=== PATIENT | female | born 1990 | race Caucasian/White ===

== ENCOUNTER 2017-02-08 12:04 | Emergency (ER) | payer OTHER ==
[2017-02-08] MEDS ORDERED: ONDANSETRON HCL 4 MG/2 ML VIAL ONE (12:30)
--- NOTE | 2017-02-08 13:15 | RADIOLOGY REPORT ---
HISTORY: Injury. COMPARISON: None. FINDINGS: 2 views of the left elbow obtained. There is no fracture. There is no lytic or sclerotic lesion. N ormal alignment and mineralization are demonstrated. There is no elevated anterior or posterior fat pad. IMPRESSION: No fracture Final Electronic Signature: This report was electronically signed by Mao Main MD on 02/08/2017 1:13 PM. jose /
--- NOTE | 2017-02-08 13:16 | RADIOLOGY REPORT ---
HISTORY: Injury. COMPARISON: None. FINDINGS: 3 views of the cervical spine obtained. There is no fracture. There is no listhesis. There is no l ytic or sclerotic lesion. Alignment and mineralization are normal. There is no prevertebral soft ti ssue prominence. There is no significant degenerative changes. IMPRESSION: No evidence of traumatic malalignment. If there is mechanism for injury to the cervical spine, CT is recommended to exclude fracture. Final Electronic Signature: This report was electronically signed by Mao Main MD on 02/08/2017 1:14 PM. jose /
--- NOTE | 2017-02-08 14:24 | RADIOLOGY REPORT ---
HISTORY: Trauma. COMPARISON: None. FINDINGS: Two views of the humerus obtained. There is no fracture. There is no lytic or sclerotic lesion. Th ere is no soft tissue swelling. There is normal alignment and mineralization. IMPRESSION: Normal x-rays of the humerus. Final Electronic Signature: This report was electronically signed by Trung Leon MD on 02/08/2017 2: 21 PM. dorian /
--- NOTE | 2017-02-08 15:07 | ER PHYSICIAN DOCUMENTATION ---
Physician Documentation [facility] Name:Stefanie Treadwell Age:26 yrs Sex:Female :1990 Arrival Date:02/08/2017 Time:12:04 Bed6 Private MD: Clifford Sebastian Disposition: 02/08 16:00 Chart complete. tl1 Disposition: 02/08/17 14:35 Discharged to Home/Self Care. Impression: Elbow Contusion, Elbow - Forearm Sprain. - Condition is Good. - Discharge Instructions: CONTUSION, Elbow, SPRAIN ELBOW. - Prescriptions for Avoca 7.5- 325 mg Oral Tablet - take 1 tablet by ORAL route every 6 hours As needed; 20 tablet. Zofran 4 mg Oral Tablet - take 1-2 tablet by ORAL route every 4-6 hours As needed; 10 tablet. - Medical Reconciliation form form. - Follow up: Private Physician; When: 4- 6 days; Reason: Recheck today's complaints, Continuance of care. - Problem is new. - Symptoms have improved. HPI: 12:12 This 26 yrs old Female presents to ER with complaints of Arm Injury - LEFT. tl1 12:15 She got bucked off a horse and landed on her left side. She did not hit her head. She tl1 did land on her left side and now complains of left proximal and mid left mid humerus pain and left elbow pain, She denies N/W/T. She denies h/a, neck pain, chest pain, abdominal pain or other extremity pain.. Historical: - Allergies: No known drug Allergies; - Home Meds: 1. None - PMHx: None; - PSHx: None; - Tetanus: unknown. - Ebola Screening: : Patient negative for fever greater than or equal to 101.5 degrees Fahrenheit, and additional compatible Ebola Virus Disease symptoms. Patient denies exposure to infectious person. Patient denies travel to an Ebola-affected area in the 21 days before illness onset. No symptoms or risks identified at this time. . - Immunization history: Flu Vaccine None. - Social history: Smoking status: Patient states was never smoker of tobacco. Patient uses alcohol occasionally. Patient/guardian denies using marijuana. ROS: 12:15 MS/extremity: Positive for injury or acute deformity, decreased range of motion, tl1 swelling, tenderness, of the left bicep, left antecubital area, left tricep and left elbow. 12:15 All other systems are negative. Exam: 12:15 Constitutional: The patient appears alert, awake, well developed, well hydrated, well tl1 groomed, well nourished, anxious, in obvious distress, moderately distressed, in obvious pain, restless, uncomfortable. 12:15 Head/face: Exam is negative for laceration(s), very superficial 1 cm laceration to the right anterior frontal scalp about 1.5 cm up from the hairline,which is not bleeding, is gaping very slightly and does not need suturing.. 12:15 Eyes: Periorbital structures: appear normal, Pupils: equal, round, and reactive to light and accomodation, Extraocular movements: intact throughout. 12:15 ENT: Exam is negative for acute changes. 12:15 Neck: External neck: is normal, C-spine: vertebral tenderness, that is mild, appreciated at C4, C5 and C6, ROM/movement: is normal, is supple, without pain, no range of motions limitations, no nuchal rigidity. 12:15 Chest/axilla: Palpation: is normal, tenderness, is not appreciated. 12:15 Cardiovascular: Rate: normal, Rhythm: regular, Heart sounds: normal. 12:15 Respiratory: Respirations: normal, Breath sounds: are normal. 12:15 Abdomen/GI: Palpation: abdomen is soft and non-tender. 12:15 Back: pain, is absent, ROM is normal, CVA tenderness, is absent. 12:15 Musculoskeletal/extremity: Extremities: grossly normal except: noted in the left arm: TTP from mid humerus to elbow, diffusely. Elbow mildly swollen with questionable smalll effusion. ROM of left elbow shows limited ROM with flexion, extension and pronation/supination. Distal NV exam intact., Circulation is intact in all extremities. Compartment Syndrome exam of affected extremity: is normal. 12:15 Neuro: Exam negative for acute changes. Vital Signs: 12:27 BP 133 / 68; Pulse 85; Resp 14; Temp 98.3(O); Pulse Ox 96% on R/A; Pain 6/10; sj 12:41 BP 114 / 81; Pulse 88; Resp 14; Pulse Ox 98% on R/A; Pain 1/10; sj 14:02 BP 114 / 81; Pulse 90; Resp 14; Pulse Ox 96% on R/A; Pain 6/10; sj 14:55 BP 120 / 71; Pulse 78; Resp 16; Pulse Ox 96% on R/A; Pain 4/10; sj MDM: 12:17 Patient medically screened. tl1 16:00 Differential diagnosis: dislocation, closed fracture, contusion, abrasion. Data tl1 reviewed: vital signs, nurses notes, radiologic studies, plain films, and as a result, I will discharge patient. Test interpretation: by ED physician or midlevel provider: plain radiologic studies. Counseling: I had a detailed discussion with the patient and/or guardian regarding: the historical points, exam findings, and any diagnostic results supporting the discharge/admit diagnosis, radiology results, the need for outpatient follow up, for a recheck, of today's symptoms. Medication response: The patient's symptoms have improved, Dilaudid. Response to treatment: the patient's symptoms have mildly improved after treatment, and as a result, I will. Special discussion: No apparent bony injury, with the pain apparently related to soft tissue contusion. She was given a left arm sling for comfort, which she can remove as symptoms allow. She should f/u with an orthopedist for significant ongoing symptoms, and return here for any worsening.. 02/08 13:16 Order name: ELBOW; [address] [place] [id number]; Complete Time: 10:53 EDMS 02/09 10:52 Interpretation: No fracture. See radiologist report. tl1 02/08 13:17 Order name: CERVICAL SPINE; 2+V [id number]; Complete Time: 10:53 EDMS 02/09 10:52 Interpretation: no fracture or malalignment. See radiologist report. tl1 02/08 14:26 Order name: [place] [id number]; Complete Time: 10:53 EDMS 02/09 10:53 Interpretation: No fracture. See radiologist report. tl1 Dispensed Medications: 12:15 Drug: Zofran 4 mg; Route: IVP; Infused Over: 2 mins; Site: right antecubital; sj 14:03 Follow up: Response: Nausea is decreased sj 12:15 Drug: Dilaudid 0.5 mg; Route: IVP; Site: right antecubital; sj 14:03 Follow up: Response: Pain is decreased sj 12:45 Drug: NS 0.9% 1000 ml; Route: IV; Rate: bolus; Site: right antecubital; sj 15:26 Follow up: IV Status: Completed infusion; IV Intake: 1000ml 13:44 Drug: Dilaudid 0.5 mg; Route: IVP; Site: right antecubital; sj 14:56 Follow up: Response: Pain is decreased Signatures: Deann Pinto RN RN lc Leigh, Tom, MD MD 1 Carleen Osborne Sarah
--- NOTE | 2017-02-08 15:07 | ER NURSING DOCUMENTATION ---
Nurse's Notes [facility] Name:Stefanie Treadwell Age:26 yrs Sex:Female :1990 Arrival Date:02/08/2017 Time:12:04 Bed6 Private MD: Diagnosis:Elbow Contusion;Elbow - Forearm Sprain Presentation: 02/08 12:07 Acuity: ASAD 3 rh 12:20 Notified ED Physician of patient's arrival and CC Dr. Salas notified. sj 12:23 Presenting complaint: Patient states: Bucked off horse, hit head but no LOC. C/o left sj shoulder and left elbow pain. Transition of care: Camp. 12:23 Method Of Arrival: EMS: 410 sj Triage Assessment: 12:24 General: Appears distressed, Behavior is anxious, cooperative, quiet. Pain: Complains sj of pain in left elbow, mild tenderness to cervical spine, forehead Pain radiates to left shoulder. Neuro: Level of Consciousness is awake, alert, Oriented to person, place, time, event. Cardiovascular: Capillary refill < 3 seconds Heart tones S1 S2 Pulses. Respiratory: Airway is patent Trachea midline Respiratory effort is even, unlabored, Respiratory pattern is regular, symmetrical, Breath sounds are clear bilaterally. Denies shortness of breath. Musculoskeletal: Circulation, motion, and sensation intact Capillary refill Range of motion limited in left shoulder and left elbow. Injury Description: Laceration sustained to center forehead. Historical: - Allergies: No known drug Allergies; - Home Meds: 1. None - PMHx: None; - PSHx: None; - Tetanus: unknown. - Ebola Screening: : Patient negative for fever greater than or equal to 101.5 degrees Fahrenheit, and additional compatible Ebola Virus Disease symptoms. Patient denies exposure to infectious person. Patient denies travel to an Ebola-affected area in the 21 days before illness onset. No symptoms or risks identified at this time. . - Immunization history: Flu Vaccine None. - Social history: Smoking status: Patient states was never smoker of tobacco. Patient uses alcohol occasionally. Patient/guardian denies using marijuana. Screenin:56 Infectious Disease Risk None. Abuse screen: Denies threats or abuse. Denies injuries sj from another. Nutritional screening: No deficits noted. Vital Signs: 12:27 BP 133 / 68; Pulse 85; Resp 14; Temp 98.3(O); Pulse Ox 96% on R/A; Pain 6/10; sj 12:41 BP 114 / 81; Pulse 88; Resp 14; Pulse Ox 98% on R/A; Pain 1/10; sj 14:02 BP 114 / 81; Pulse 90; Resp 14; Pulse Ox 96% on R/A; Pain 6/10; sj 14:55 BP 120 / 71; Pulse 78; Resp 16; Pulse Ox 96% on R/A; Pain 4/10; sj ED Course: 12:05 Patient arrived in ED. ama 12:07 Triage completed. rh 12:17 Clifford Salas MD is Attending Physician. tl1 12:20 Port Xray Completed. pm1 12:23 Kinza Jha is Primary Nurse. sj 12:28 Affected limb iced. Ice pack applied. sj 12:29 Valuables Remains with patient Patient has correct armband on for positive sj identification. Placed in gown. Bed in low position. Side rails up X2. Lights dimmed. 12:29 Inserted peripheral IV: 20 gauge in right antecubital area and blood collected. sj 12:35 Patient moved to radiology. pm1 12:42 Patient moved back from radiology. pm1 12:44 Wound care to laceration located on face was Irrigation Normal Saline Patient tolerated arc well. 14:51 Sling & swathe to left arm. lc 15:24 Primary Nurse role handed off by Kinza Jha 15:24 Kinza Jha is Primary Nurse. sj Administered Medications: 12:15 Drug: Zofran 4 mg; Route: IVP; Infused Over: 2 mins; Site: right antecubital; sj 14:03 Follow up: Response: Nausea is decreased sj 12:15 Drug: Dilaudid 0.5 mg; Route: IVP; Site: right antecubital; sj 14:03 Follow up: Response: Pain is decreased sj 12:45 Drug: NS 0.9% 1000 ml; Route: IV; Rate: bolus; Site: right antecubital; sj 15:26 Follow up: IV Status: Completed infusion; IV Intake: 1000ml sj 13:44 Drug: Dilaudid 0.5 mg; Route: IVP; Site: right antecubital; sj 14:56 Follow up: Response: Pain is decreased sj Intake: 15:26 IV: 1000ml; Total: 1000ml. sj Outcome: 14:35 Discharge ordered by . tl1 14:51 Discharged to home ambulatory, with friend. 14:51 Condition: stable 14:51 Discharge Assessment: Patient awake, alert and oriented x 3. No cognitive and/or functional deficits noted. Patient verbalized understanding of disposition instructions. 14:51 Discharge instructions given to patient, Instructed on discharge instructions, follow up and referral plans. medication usage, [facility] Demonstrated understanding of instructions, medications, Prescriptions given X 2. 15:06 Patient left the ED. 15:26 Patient left the ED. 02/09 16:55 Discharge F/U Call: Unable to reach: left voicemail: Signatures: Deann Pinto RN RN Yogesh Boothe pm1 Anthony Goldman, Reg Reg Clifford Green MD MD tl1 Suzanne Alejandra, Reg Reg Carleen Tidwell Kinza Jha
== END 2017-02-08 15:27 | disposition home or self-care (01) ==
LOC: ER 12:04
DX: S50.02XA Contusion of left elbow, initial encounter (principal); S56.912A Strain of unspecified muscles, fascia and tendons at forearm level, left arm, initial encounter; S01.81XA Laceration without foreign body of other part of head, initial encounter; V80.010A Animal-rider injured by fall from or being thrown from horse in noncollision accident, initial encounter; Y92.838 Other recreation area as the place of occurrence of the external cause; Y93.52 Activity, horseback riding
CPT/HCPCS: 72040; 96361; 96374; 96375; 96376; 99284; A0425; A0428; J1170; J2405